=== PATIENT | male | born 1975 | race Caucasian/White ===

== ENCOUNTER 2016-03-04 08:56 | Inpatient (IN) | payer OTHER ==
[~2016-03-04] VITALS: Ht 182.9 cm; Wt 113.7 kg
[~2016-03-04 08:56] MED LIST: FENO48TA4 PO; LISI20TA11 PO; METR500T PO; ONDA-43 PO; PERCOCET PO; PHE12.5R PR
[2016-03-04] MEDS ORDERED: morphine 4 MG/ML VIAL IV STA (09:44)
[2016-03-04] MEDS ORDERED: SOD CHLORIDE 0.9% 1,000 ML IV STA (09:44)
[2016-03-04] MEDS ORDERED: ONDANSETRON 4 MG INJ IV STA (09:44)
[2016-03-04 10:19] LABS: BASOPHILS % 0.3 % (0.0-2.0); EOSINOPHILS # 0.1 10^3/ul (0.0-0.5); EOSINOPHILS % 1.5 % (0.0-7.0); HEMATOCRIT 46.3 % (42.0-52.0); LYMPHOCYTES # 1.8 10^3/ul (0.8-2.9); MEAN CORPUSCULAR HGB CONC 34.5 g/dl (32.0-37.0); MEAN CORPUSCULAR VOLUME 86.8 fl (82.0-101.0); MEAN PLATELET VOLUME 8.9 fl (7.4-10.4); MONOCYTE # 0.7 10^3/ul (0.3-0.9); MONOCYTES % 12.3 % (0.0-11.0); NEUTROPHIL # 3.3 10^3/ul (1.6-7.5); NEUTROPHILS % 55.9 % (39.0-77.0); PLATELET COUNT 166 10^3/UL (140-440); RED BLOOD COUNT 5.34 10^6/ul (4.70-6.10); RED CELL DISTRIBUTION WIDTH 12.6 % (11.5-14.5); UNCORRECTED WBC 5.9 10^3/ul (4.8-10.8); WHITE BLOOD COUNT 5.9 10^3/ul (4.8-10.8)
[2016-03-04 10:20] LABS: ADD UMIC NO; URINE BILIRUBIN (Dip) NEGATIVE (NEGATIVE); URINE BLOOD (Dip) NEGATIVE (NEGATIVE); URINE COLOR LT. YELLOW (YELLOW); URINE GLUCOSE (Dip) NEGATIVE (NEGATIVE); URINE KETONES (Dip) NEGATIVE (NEGATIVE); URINE LEUKOCYTE ESTERASE (Dip) NEGATIVE (NEGATIVE); URINE NITRITE (Dip) NEGATIVE (NEGATIVE); URINE TOTAL PROTEIN (Dip) NEGATIVE (NEGATIVE); URINE UROBILINOGEN (Dip) 0.2 E.U./dL (0.1-1.0)
[2016-03-04 10:26] LABS: ALBUMIN 4.4 g/dl (3.3-4.9); POTASSIUM 4.5 mmol/L (3.5-5.1)
[2016-03-04] MEDS ORDERED: HYDROmorphONE 1 MG/ML SYG IV STA ×2 (10:26→13:01)
[2016-03-04 10:29] LABS: ALBUMIN/GLOBULIN RATIO 1.33; BILIRUBIN,INDIRECT 0.3 mg/dl (0-1.1); BILIRUBIN,TOTAL 0.3 mg/dl (0.2-1.3); CALCIUM 9.6 mg/dl (8.4-10.2); CONDITION 1; CREATININE 1.05 mg/dl (0.61-1.24); TOTAL PROTEIN 7.7 g/dl (6.1-8.1)
[2016-03-04] MEDS ORDERED: IOHEXOL 300MG/ML 150 ML BTL ONE (10:40)
[2016-03-04] MEDS ORDERED: SOD CHLORIDE 0.9% 100 ML ONE (10:40)
--- NOTE | 2016-03-04 11:06 | RADRPT ---
PROCEDURE: CT abdomen and pelvis with contrast. CLINICAL INDICATION: Abdominal pain. Abdominal bloating. TECHNIQUE: CT scan of the abdomen and pelvis with contrast [facility] The patient was scanned following the uncomplicated intravenous administration 100 cc of Omnipa que-300. Coronal and sagittal reformatted images were obtained from the axial source images. One or more of the following does reduction techniques were used: Automated exposure control; adjustment of the mA and/or kV according to patient size; use of the aorta of reconstruction technique. Images were reviewed on a high-resolution PACS workstation. The total exam CTDI equals 23.23 mGy and the to duc exam DLP equals 1612.88 mGy-cm. COMPARISON: CT abdomen pelvis 12/29/2015 FINDINGS: Breathing artifact limits evaluation of the lung bases which are grossly clear.. The heart size is normal, without pericardial thickening or effusion. A coarse calcification in the right posterior liver is stable. There is a 7 mm cyst in the inferior right lobe of the liver. The liver, spleen, and pancreas are otherwise normal.. The gallbladder i s normal. The adrenal glands are symmetric and normal. The kidneys show normal and symmetric enhancement. Th ere is a 7 mm right lower pole renal cyst. No solid renal masses are identified. No renal calculus or obstructive uropathy is seen. The aorta is of normal caliber. There is no retroperitoneal lymph node enlargment. There is no evidence of large or small bowel obstruction. Colonic diverticulosis is again seen. The re is mild thickening of the mid sigmoid colon with mild adjacent inflammatory changes. This is in the same location as prior bout of diverticulitis. There is no evidence of perforation or abscess. No other areas of inflammatory change are noted. A normal appendix is identified. There is no evidence of pelvic sidewall lymph node enlargement. The urinary bladder is decompress ed and collapsed. There is no pelvic free fluid. There is a small left inguinal hernia containing only fat The osseous structures are intact. IMPRESSION: 1. Diverticulosis with mild thickening and subtle adjacent inflammatory change of the mid sigmoid c olon most consistent with diverticulitis. This is in the same location as prior study, and follow-u p with colonoscopy after resolution of symptoms should be considered to exclude neoplasm if clinical ly indicated. No evidence of perforation or abscess formation. 2. Small renal and hepatic cysts. These do not require additional follow-up unless clinically bret cated. 3. Small left inguinal hernia containing only fat. RPTAT: KK .Pablo Amado MD, Date Time Electronically viewed and signed by .Pablo Amado MD, on 03/04/2016 11:05 .B/
[2016-03-04] MEDS ORDERED: HYDROCODONE/APAP (5/325) TAB PO PRN (13:30)
[2016-03-04] MEDS ORDERED: ACETAMINOPHEN 325 MG TAB PO PRN ×2 (13:30)
[2016-03-04] MEDS ORDERED: DOCUSATE SODIUM 100 MG CAP PO PRN (13:30)
[2016-03-04] MEDS ORDERED: morphine 2 MG INJ IV PRN (13:30)
[2016-03-04] MEDS ORDERED: NACL 0.9% 3 ML SYG IV SCH (13:30)
[2016-03-04] MEDS ORDERED: ONDANSETRON 4 MG INJ IV PRN (13:30)
[2016-03-04] MEDS ORDERED: PROMETHAZINE 12.5 MG SUPP PR PRN (14:00)
[2016-03-04] MEDS: CIPROFLOXACIN 400MG/D5W 200 ML IVPB SCH ×2 (14:15→22:46)
[2016-03-04 14:25] VITALS: PULSE 75; TEMP 98.1
--- NOTE | 2016-03-04 14:26 | ERA ---
ER Documentation Chief Complaint Date/Time DATE: 03/04/16 TIME: 14:24 Chief Complaint ABD PAIN WITH DAIRRHEA , NAUSEA X 4 DAYS HPI Patient is a 40-year-old male with previous diverticulitis who presents with abdominal pain. He has 4 days of abdominal pain which in the left lower quadrant. Sharp. He has needed admission for diverticulitis in the past. He has a history of having a diverticulitis which did not get better with outpatient antibiotics. He has had no treatment today for symptoms. ROS All systems reviewed and are negative except as per history of present illness. Medications Home Meds Active Scripts Metronidazole* (Flagyl*) 500 Mg Tablet, 500 MG PO Q8, #1 TAB Prov:IQRA HOFFMAN MD 01/02/16 Ondansetron Hcl* (Zofran*) 4 Mg Tab, 4 MG PO Q6H Y for NAUSEA AND OR VOMITING, # 1 TAB Prov:IQRA HOFFMAN MD 01/02/16 Promethazine HCl (Phenadoz) 12.5 Mg Supp.rect, 12.5 MG [place] Q6H Y for NAUSEA AND/ OR VOMITING, #1 SUPP.RECT Prov:IQRA HOFFMAN MD 01/02/16 Oxycodone Hcl/Acetaminophen (Percocet) 1 Tab Tab, 1 TAB PO QID Y for PAIN, #1 TAB Prov:IQRA HOFFMAN MD 01/02/16 Fenofibrate Nanocrystallized* (Fenofibrate*) 48 Mg Tablet, 48 MG PO DAILY, #30 TAB Prov:IQRA HOFFMAN MD 01/02/16 Reported Medications Lisinopril* (Lisinopril*) 20 Mg Tablet, 20 MG PO DAILY, #30 TAB 12/29/15 Allergies Allergies: Coded Allergies: No Known Allergy (Unverified , 07/22/14) PMhx/Soc History of Surgery: Yes (RIGHT ARM SURGERY, CAVERNOUS HEMANGIOMA LEFT FACE) Anesthesia Reaction: No Hx Neurological Disorder: Yes (HEADACHE SINCE CHILDHOOD) Hx Respiratory Disorders: Yes (BRONCHITIS) Hx Cardiac Disorders: Yes (HTN) Hx Psychiatric Problems: Yes (DEPRESSION WAS ON WELLBUTRIN) Hx Miscellaneous Medical Probl: No (DIVERTICULITIS) Hx Alcohol Use: Yes (OCCASIONAL) Hx Substance Use: No Hx Tobacco Use: Yes (04/2015) Smoking Status: Current every day smoker FmHx Family History: No diabetes Physical Exam Vitals Vital Signs Date Time Temp Pulse Resp B/P Pulse Ox O2 Delivery O2 Flow Rate FiO2 03/04/16 08:58 98.1 88 18 127/75 98 Physical Exam Const: Moderate distress secondary to pain Head: Atraumatic Eyes: Normal Conjunctiva ENT: Normal External Ears, Nose and Mouth. Neck: Full range of motion..~ No meningismus. Resp: Clear to auscultation bilaterally Cardio: Regular rate and rhythm, no murmurs Abd: Soft, left lower quadrant pain without rebound or guarding Skin: No petechiae or rashes Back: No midline or flank tenderness Ext: No cyanosis, or edema Neur: Awake and alert Psych: Normal Mood and Affect Result Diagram: 03/04/1695703/04/16957 Results 24 hrs Laboratory Tests Test 03/04/16 09:48 03/04/16 09:58 Urine Bilirubin NEGATIVE Urine Clarity CLEAR Urine Color LT. YELLOW Urine Glucose NEGATIVE% Urine Hemoglobin NEGATIVE Urine Ketones NEGATIVE Urine Leukocyte Esterase NEGATIVE Urine Nitrite NEGATIVE Urine Specific [place] 1.020 Urine Total Protein NEGATIVE Urine Urobilinogen 0.2 E.U./dL Urine pH 6.0 Alanine Aminotransferase (ALT/SGPT) 49IU/L Albumin 4.4g/dl Albumin/Globulin Ratio 1.33 Alkaline Phosphatase 72IU/L Anion Gap 17 Aspartate Amino Transf (AST/SGOT) 32IU/L Basophils # 0.010^3/ul Basophils % 0.3% Blood Urea Nitrogen 14mg/dl Calcium Level 9.6mg/dl Carbon Dioxide Level 27mmol/L Chloride Level 102mmol/L Creatinine 1.05mg/dl Direct Bilirubin 0.00mg/dl Eosinophils # 0.110^3/ul Eosinophils % 1.5% Globulin 3.30g/dl Glucose Level 100mg/dl Hematocrit 46.3% Hemoglobin 16.0g/dl Indirect Bilirubin 0.3mg/dl Lipase 53U/L Lymphocytes # 1.810^3/ul Lymphocytes % 30.0% Mean Corpuscular Hemoglobin 30.0pg Mean Corpuscular Hemoglobin Concent 34.5g/dl Mean Corpuscular Volume 86.8fl Mean Platelet Volume 8.9fl Monocytes # 0.710^3/ul Monocytes % 12.3% Neutrophils # 3.310^3/ul Neutrophils % 55.9% Nucleated Red Blood Cells # 0.010^3/ul Nucleated Red Blood Cells % 0.0/100WBC Platelet Count 81748^3/UL Potassium Level 4.5mmol/L Red Blood Count 5.3410^6/ul Red Cell Distribution Width 12.6% Sodium Level 141mmol/L Total Bilirubin 0.3mg/dl Total Protein 7.7g/dl White Blood Count 5.910^3/ul Current Medications Medications (Trade) Dose Ordered Sig/Thelma Route PRN Reason Start Time Stop Time Status Last Admin Dose Admin Sodium Chloride (NS) 1,000 ml @ 1,000 mls/hr Q1H STAT IV 03/04/16 09:44 03/04/16 10:43 DC 03/04/16 10:05 Morphine Sulfate (morphine) 4 mg ONCE STAT IV 03/04/16 09:44 03/04/16 09:46 DC 03/04/16 10:06 Ondansetron HCl (Zofran Inj) 4 mg ONCE STAT IV 03/04/16 09:44 03/04/16 09:46 DC 03/04/16 10:06 Hydromorphone HCl (Dilaudid) 1 mg ONCE STAT IV 03/04/16 10:26 03/04/16 10:27 DC 03/04/16 10:56 IV Flush 10 ml 10 ml STK-MED ONCE .ROUTE 03/04/16 10:40 03/04/16 10:41 DC 03/04/16 10:57 Sodium Chloride (NS) 100 ml @ ud STK-MED ONCE .ROUTE 03/04/16 10:40 03/04/16 10:41 DC 03/04/16 10:57 Iohexol (Omnipaque 300mg/ ml) 150 ml STK-MED ONCE .ROUTE 03/04/16 10:40 03/04/16 10:41 DC 03/04/16 10:59 Hydromorphone HCl (Dilaudid) 1 mg ONCE STAT IV 03/04/16 13:01 03/04/16 13:02 DC 03/04/16 13:07 Ondansetron HCl (Zofran Inj) 4 mg BRIDGE ORDER PRN IV NAUSEA AND/OR VOMITING 03/04/16 13:30 03/05/16 13:29 Acetaminophen 650 mg 650 mg ER BRIDGE PRN PO MILD PAIN/FEVER 03/04/16 13:30 03/05/16 13:29 Potassium Chloride/Dextrose/ Sod Cl (D5-1/2ns + KCl 20 Meq) 1,000 ml @ 80 mls/hr [id number] IV 03/04/16 13:27 IV Flush (NS 3 ml) 3 ml PER PROTOCOL IV 03/04/16 13:30 Ondansetron HCl (Zofran Inj) 4 mg Q6H PRN IV NAUSEA AND/OR VOMITING 03/04/16 13:30 Acetaminophen (Tylenol Tab) 650 mg Q6H PRN PO PAIN LEVEL 1-3 OR FEVER 03/04/16 13:30 Acetaminophen/ Hydrocodone Bitart ([place] (5/325)) 1 tab Q6H PRN PO MODERATE PAIN LEVEL 4-6 03/04/16 13:30 Morphine Sulfate (morphine) 2 mg Q4H PRN IV SEVERE PAIN LEVEL 7-10 03/04/16 13:30 Docusate Sodium (Colace) 100 mg Q12H PRN PO CONSTIPATION 03/04/16 13:30 Pantoprazole 40 mg 40 mg DAILY@06 IV 03/05/16 06:00 Ciprofloxacin/ Dextrose (Cipro Ivpb) 200 ml @ 200 mls/hr Q12 IVPB 03/04/16 14:00 03/04/16 14:15 Metronidazole (Flagyl) 500 mg TID PO 03/04/16 21:00 UNV Fenofibrate (Tricor) 48 mg DAILY PO 03/05/16 09:00 UNV Lisinopril (Zestril) 20 mg DAILY PO 03/05/16 09:00 Promethazine HCl (Phenadoz) 12.5 mg Q6H PRN [place] NAUSEA AND/OR VOMITING 03/04/16 14:00 Hydromorphone HCl (Dilaudid) 1 mg Q4H PRN IV PAIN 03/04/16 14:30 03/05/16 10:00 UNV Procedures/MDM CT scan shows acute diverticulitis per radiology. Patient is a 40-year-old male presents with abdominal pain. He has diverticulitis on CT scan. The patient has a normal white blood cell count and normal electrolytes. However given his complicated history with diverticulitis I do believe he will require admission. I spoke with Dr. Hoffman from the panel team who will admit the patient to a medical surgical bed. At this point I doubt appendicitis, cholecystitis, pancreatitis, or bowel obstruction. Departure Diagnosis: Primary Impression: Abdominal pain Qualified Code: R10.32 - Left lower quadrant pain Additional Impression: Diverticulitis Qualified Code: K57.32 - Diverticulitis of large intestine without perforation or abscess without bleeding Condition: LISA Ospina MD Mar 04, 2016 14:26
[2016-03-04] MEDS: ONDANSETRON 4 MG INJ IV PRN ×2 (15:09→21:50)
[2016-03-04] MEDS: D5W-0.45 NACL + KCL 20 MEQ 1,000 ML IV SCH (15:11)
[2016-03-04 15:18] VITALS: Ht 182.9 cm; Wt 113.7 kg
--- NOTE | 2016-03-04 17:01 | HP ---
DATE OF ADMISSION: 03/04/2016 CRITICAL CARE NURSE PRACTITIONER: GI CHIEF COMPLAINT: Abdominal pain. HISTORY OF PRESENT ILLNESS: This is a 40-year-old gentleman with past medical history of diverticul osis, exogenous obesity, essential hypertension and hypertriglyceridemia, GERD, who presented to [facility] secondary to having lower quadrant abdominal pain, 10/10, without any feve r, chills, nausea, vomiting, diarrhea. The pain is sharp, shooting pain. He states that he is able to tolerate liquid diet only. He has been on oral pain medication with no relief and worsening wit h movement. Upon evaluation in the ER, CT abdomen and pelvis was obtained which demonstrated divert iculosis with mild thickening and ____ inflammatory changes in the mid sigmoid colon, most consisten t with diverticulitis. This is ____ the patient has prior to study. No evidence of perforation or abscess formation, small benign hepatic cyst. Small left inguinal hernia containing only fat. The patient was treated with Dilaudid, normal saline, morphine in the course of the Emergency Room. At this time, the patient denies having any chest pain, shortness of breath, nausea, vomiting, diarrhe a. No headache, dizziness, lightheadedness. No change in visual acuity, diplopia, photophobia. No recent travel history. No sick contact, lower quadrant abdominal discomfort, no change in appetit e. No neck pain, no restricted range of motion in upper and lower extremities or his neck. No hair loss, no rash, erythema, or any other discomfort. PAST MEDICAL AND SURGICAL HISTORY: As above per HPI. MEDICATIONS: 1. Fenofibrate. 2. Lisinopril. 3. Flagyl. 4. Zofran. 5. Percocet. 6. Promethazine. ALLERGIES: NO KNOWN DRUG ALLERGIES. FAMILY HISTORY: Noncontributory. SOCIAL HISTORY: Denies any smoking, alcohol, illicit drugs. REVIEW OF SYSTEMS: As above per HPI, otherwise 12 review of systems has been found to be negative. PHYSICAL EXAMINATION: VITAL SIGNS: Temperature 98.1, pulse 88, respiration 18, blood pressure 127/75, oxygen saturation 9 8% in room air. GENERAL APPEARANCE: The patient is lying in bed comfortably without any distress. He is awake, sharee rt, oriented. He is able to answer my questions properly. Body habitus morbidly obese. EYES AND ENT: Conjunctivae and lids are normal. Pupils are normal. Extraocular normal. Hearing g rossly normal. Lips, teeth and gums are normal. Oral mucosa mildly dry. NECK: Supple. Trachea is midline. No lymphadenopathy. RESPIRATORY: Effort is normal. Clear to auscultate bilaterally. CARDIOVASCULAR: Normal S1, S2. Regular rhythm and rate. No murmur, no bruits, no edema. Peripher al pulses, radial pulses palpable. Cap refill is normal. CHEST: Normal expansion of thorax during inspiration. GASTROINTESTINAL: Abdomen is soft, nontender, not distended. Bowel sounds present. No guarding, n o rebound. GENITOURINARY: Deferred. MUSCULOSKELETAL: Upper and lower extremities within normal limits. Full range of motion, strength 5/5 both upper and lower extremities. NEUROLOGIC: Cranial nerves II through XII are grossly intact. MOOD AND AFFECT: Normal. LABORATORY WORK AND IMAGING: WBC 5.9, hemoglobin 16, hematocrit 46.3, platelet 166. Sodium 141, po tassium 4.5, chloride 102, bicarbonate 27, BUN 14, creatinine is 1.05, glucose 100. LFTs all within normal limits. Lipase normal. ASSESSMENT AND PLAN: 1. Diverticulitis. Gastroenterology has been consulted. Patient has been placed on ciprofloxacin and Flagyl, IV fluid, n.p.o. Will follow up Gastroenterology recommendation. 2. Essential hypertension, well controlled on medical management, lisinopril. 3. Hypertriglyceridemia. Continue Fenofibrate. 4. Abdominal pain secondary to #1. Continue pain medication. 5. For deep venous thrombosis prophylaxis, on SCD. 6. For gastrointestinal prophylaxis, on Protonix. 7. We will continue to monitor patient closely. Further recommendations, management and treatment as per clinical course. Total amount of time was spent for evaluation of patient and admission workup 40 minutes. Dictated By: IQRA SANTANA/NTS Conf#: [id number] DID#: [id number]
[2016-03-04] MEDS: HYDROmorphONE 1 MG/ML SYG IV PRN ×2 (17:06→21:08)
--- NOTE | 2016-03-04 17:41 | CONS ---
Date/Time of Note Date/Time of Note DATE: 03/04/16 TIME: 17:41 Assessment/Plan Assessment/Plan Additional Assessment/Plan Diverticulitis * Okay to start clear diet * Continue antibiotic treatment * Recommend surgery consult * Outpatient colonoscopy in 6-8 weeks after discharge Elevated triglycerides Hypertension Obesity Further recommendations depend on clinical course Consultation Date/Type/Reason Admit Date/Time Mar 04, 2016 at 13:05 Type of Consultation: Gastroenterology Reason for Consultation Diverticulosis Hx of Present Illness 40-year-old male with complaints of intense left lower quadrant abdominal pain, nausea, nonbloody bilious vomiting, and diarrhea with intermittent hematochezia for the last 4 days. Patient previously discharged early December with PICC line for antibiotic treatment of diverticulitis. Patient completed treatment but reports increase of symptoms gradually and worsening over the last 4 days. Patient denies fever, chills, bright red blood per rectum, and family history of colon cancer or colon polyps. CT abdomen notes:"Diverticulosis with mild thickening and inflammatory changes in the mid sigmoid colon, most consistent with diverticulitis. No evidence of perforation or abscess formation". Patient reports a total of 5 hospitalizations for same symptoms in the last year. Patient reports being treated at [facility], [facility], [facility], [facility] and [facility]. Patient reports abstaining from seeds, nuts, popcorn without any relief in symptoms. 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 Patient is interested in surgical consult due to recurrent nature of symptoms. Past Medical History Medical History: diverticulitis Past Surgical History Past Surgical Hx: no surgical history Social History Alcohol Use: rarely Smoking Status: Former smoker Exam/Review of Systems Vital Signs Vitals Vital Signs Date Time Temp Pulse Resp B/P Pulse Ox O2 Delivery O2 Flow Rate FiO2 03/04/16 14:25 98.1 75 18 122/63 98 Room Air Exam Constitutional: alert, obese, oriented, well developed Head: atraumatic, normocephalic Eyes: EOMI, nl conjunctiva, nl lids, nl sclera ENMT: mucosa pink and moist, nl external ears & nose, nl lips & teeth, nl nasal mucosa & septum Respiratory: normal air movement Cardiovascular: regular rate and rhythm Gastrointestinal: soft, tender (Left lower quadrant) Neurological: nl mental status Results Result Diagram: 03/04/1658 03/04/16957 Results 24 hrs Laboratory Tests Test 03/04/16 09:48 03/04/16 09:58 Urine Bilirubin NEGATIVE Urine Clarity CLEAR Urine Color LT. YELLOW Urine Glucose NEGATIVE Urine Hemoglobin NEGATIVE Urine Ketones NEGATIVE Urine Leukocyte Esterase NEGATIVE Urine Nitrite NEGATIVE Urine Specific [place] 1.020 Urine Total Protein NEGATIVE Urine Urobilinogen 0.2 E.U./dL Urine pH 6.0 Alanine Aminotransferase (ALT/SGPT) 49 Albumin 4.4 Albumin/Globulin Ratio 1.33 Alkaline Phosphatase 72 Anion Gap 17 H Aspartate Amino Transf (AST/SGOT) 32 Basophils # 0.0 Basophils % 0.3 Blood Urea Nitrogen 14 Calcium Level 9.6 Carbon Dioxide Level 27 Chloride Level 102 Creatinine 1.05 Direct Bilirubin 0.00 Eosinophils # 0.1 Eosinophils % 1.5 Globulin 3.30 H Glucose Level 100 Hematocrit 46.3 Hemoglobin 16.0 Indirect Bilirubin 0.3 Lipase 53 Lymphocytes # 1.8 Lymphocytes % 30.0 Mean Corpuscular Hemoglobin 30.0 Mean Corpuscular Hemoglobin Concent 34.5 Mean Corpuscular Volume 86.8 Mean Platelet Volume 8.9 Monocytes # 0.7 Monocytes % 12.3 H Neutrophils # 3.3 Neutrophils % 55.9 Nucleated Red Blood Cells # 0.0 Nucleated Red Blood Cells % 0.0 Platelet Count 166 Potassium Level 4.5 Red Blood Count 5.34 Red Cell Distribution Width 12.6 Sodium Level 141 Total Bilirubin 0.3 Total Protein 7.7 White Blood Count 5.9 Medications Medications Current Medications Potassium Chloride/Dextrose/ Sod Cl (D5-1/2ns + KCl 20 Meq) 1,000 ml @ 80 mls/ hr [id number] IV Last administered on 03/04/16 15:11; Admin Dose 80 MLS/HR; Start 03/04/16 at 13:27 Ondansetron HCl (Zofran Inj) 4 mg Q6H PRN IV NAUSEA AND/OR VOMITING Last administered on 03/04/16 15:09; Admin Dose 4 MG; Start 03/04/16 at 13:30 Acetaminophen (Tylenol Tab) 650 mg Q6H PRN PO PAIN LEVEL 1-3 OR FEVER; Start at 13:30 Acetaminophen/ Hydrocodone Bitart ([place] (5/325)) 1 tab Q6H PRN PO MODERATE PAIN LEVEL 4-6; Start 03/04/16 at 13:30 Morphine Sulfate (morphine) 2 mg Q4H PRN IV SEVERE PAIN LEVEL 7-10; Start 03/04 at 13:30 Docusate Sodium (Colace) 100 mg Q12H PRN PO CONSTIPATION; Start 03/04/16 at 13: 30 Pantoprazole 40 mg 40 mg DAILY@06 IV ; Start 03/05/16 at 06:00 Ciprofloxacin/ Dextrose (Cipro Ivpb) 200 ml @ 200 mls/hr Q12 IVPB Last administered on 03/04/16t 14:15; Admin Dose 200 MLS/HR; Start 03/04/16 at 14:00 Metronidazole (Flagyl) 500 mg TID PO ; Start 03/04/16 at 21:00 Fenofibrate (Tricor) 48 mg DAILY PO ; Start 03/05/16 at 09:00 Promethazine HCl (Phenadoz) 12.5 mg Q6H PRN [place] NAUSEA AND/OR VOMITING; Start at 14:00 Hydromorphone HCl (Dilaudid) 1 mg Q4H PRN IV PAIN Last administered on 17:06; Admin Dose 1 MG; Start 03/04/16 at 14:30; Stop 03/05/16 at 10:00 Lisinopril (Zestril) 20 mg DAILY PO ; Start 03/04/16 at 21:00 HERMELINDA KAPOOR MD Mar 04, 2016 17:41
[2016-03-04 19:26] VITALS: BP 146/76; RESP 16
--- NOTE | 2016-03-04 19:27 | CONS ---
DATE OF ADMISSION: 03/04/2016 DATE OF CONSULTATION: 03/04/2016 HISTORY OF PRESENT ILLNESS: Mr. Salazar is a 40-year-old male who presented to the emergency room tom[facility] lina[facility] with 4 days of left lower quadrant abdominal pain. Patient has a history of diverticulitis and f elt that these symptoms were similar. He has had approximately 5 episodes in the past. He was rece ntly hospitalized a month ago. A CT showed diverticulitis in a similar spot that he had 1 month ago . He denies fevers or chills. He had some nausea. PAST MEDICAL HISTORY: Significant for exogenous obesity, hypertension, hypertriglyceridemia, and G ERD. MEDICATIONS: 1. Fenofibrate. 2. Lisinopril. 3. Flagyl. 4. Zofran. 5. Percocet 6. Promethazine. ALLERGIES: NO KNOWN DRUG ALLERGIES. PAST SURGICAL HISTORY: Noncontributory. SOCIAL HISTORY: Denies drinking, drug use or smoking. PHYSICAL EXAMINATION: GENERAL: He is a well-developed, well-nourished male in no apparent distress. VITAL SIGNS: He is afebrile. Vital signs stable. CHEST: Clear to auscultation bilaterally. HEART: Regular rhythm. ABDOMEN: Soft, nondistended but some left lower quadrant tenderness. LABORATORY DATA: Reveal white count of 6, hematocrit of 46 and platelets of 166. A CT of the abdom en and pelvis was consistent which showed diverticulosis with mild thickening and subtle adjacent in flammatory change of the mid sigmoid consistent with diverticulitis. ASSESSMENT AND PLAN: Mr. Salazar is a 40-year-old male with acute diverticulitis. 1. I do think the patient should have an elective laparoscopic sigmoid resection in 4 to 6 weeks as the patient is young, has had multiple recurrent attacks. 2. This attack likely can be managed as an outpatient. 3. The patient will see me in followup. Dictated By: JSEE PERRIN/BORA Conf#: [id number] DID#: [id number]
[2016-03-04] MEDS: metroNIDAZOLE 500 MG TAB PO SCH (20:25)
[2016-03-04] MEDS: LISINOPRIL 20 MG TAB PO SCH (20:26)
[2016-03-05] MEDS: D5W-0.45 NACL + KCL 20 MEQ 1,000 ML IV SCH ×3 (01:57→14:27)
[2016-03-05] MEDS ORDERED: PANTOPRAZOLE 40 MG INJ IV SCH (06:00)
[2016-03-05] MEDS: CIPROFLOXACIN 400MG/D5W 200 ML IVPB SCH (08:35)
[2016-03-05] MEDS: metroNIDAZOLE 500 MG TAB PO SCH ×2 (08:36→12:13)
[2016-03-05] MEDS: LISINOPRIL 20 MG TAB PO SCH (08:41)
[2016-03-05] MEDS ORDERED: FENOFIBRATE 48 MG TAB PO SCH (09:00)
[2016-03-05] MEDS ORDERED: LISINOPRIL 20 MG TAB PO SCH (09:00)
[2016-03-05 09:53] LABS: BASOPHILS % 0.3 % (0.0-2.0); EOSINOPHILS # 0.1 10^3/ul (0.0-0.5); EOSINOPHILS % 1.3 % (0.0-7.0); HEMATOCRIT 42.8 % (42.0-52.0); HEMOGLOBIN 14.8 g/dl (14.0-18.0); LYMPHOCYTES # 1.8 10^3/ul (0.8-2.9); LYMPHOCYTES % 42.1 % (15.0-51.0); MEAN CORPUSCULAR HGB CONC 34.6 g/dl (32.0-37.0); MEAN CORPUSCULAR VOLUME 86.8 fl (82.0-101.0); MEAN PLATELET VOLUME 9.1 fl (7.4-10.4); MONOCYTE # 0.5 10^3/ul (0.3-0.9); MONOCYTES % 11.2 % (0.0-11.0); NEUTROPHILS % 45.1 % (39.0-77.0); PLATELET COUNT 159 10^3/UL (140-440); RED BLOOD COUNT 4.94 10^6/ul (4.70-6.10); RED CELL DISTRIBUTION WIDTH 12.8 % (11.5-14.5); UNCORRECTED WBC 4.4 10^3/ul (4.8-10.8); WHITE BLOOD COUNT 4.4 10^3/ul (4.8-10.8)
[2016-03-05 09:57] LABS: CONDITION 1
[2016-03-05 10:01] LABS: POTASSIUM 4.2 mmol/L (3.5-5.1)
[2016-03-05 10:03] LABS: CREATININE 1.1 mg/dl (0.61-1.24)
[2016-03-05 10:04] LABS: MAGNESIUM 2.2 mg/dl (1.7-2.5)
[2016-03-05 10:07] VITALS: BP 126/71; RESP 18
[2016-03-05] MEDS ORDERED: morphine 4 MG/ML VIAL IV PRN (13:30)
--- NOTE | 2016-03-05 14:12 | CONS ---
Date/Time of Note Date/Time of Note DATE: 03/05/16 TIME: 14:05 Assessment/Plan Assessment/Plan Additional Assessment/Plan Diverticulitis * Advance diet as tolerated * Continue antibiotic treatment as outpatient * Follow-up with surgery * Outpatient colonoscopy and capsule endoscopy in 6-8 weeks after discharge Elevated triglycerides Hypertension Obesity Further recommendations depend on clinical course Patient seen in collaboration with Dr. Ambriz Consultation Date/Type/Reason Admit Date/Time Mar 04, 2016 at 13:05 Initial Consult Date Type of Consultation: Gastroenterology 24 HR Interval Summary Free Text/Dictation Tolerating diet Abdominal pain improving Recommend outpatient small bowel evaluation Patient to follow-up with general surgeons 4-6 weeks after discharge Exam/Review of Systems Vital Signs Vitals Vital Signs Date Time Temp Pulse Resp B/P Pulse Ox O2 Delivery O2 Flow Rate FiO2 03/05/16 10:07 97.3 56 18 126/71 97 03/04/16 14:25 Room Air Intake and Output 03/04/16 03/04/16 03/05/16 15:00 23:00 07:00 Intake Total 1800 ml 2360 ml Balance 1800 ml 2360 ml Exam Constitutional: alert, obese, oriented, well developed Head: atraumatic, normocephalic Eyes: EOMI, nl conjunctiva, nl lids, nl sclera ENMT: mucosa pink and moist, nl external ears & nose, nl lips & teeth, nl nasal mucosa & septum Respiratory: normal air movement Cardiovascular: regular rate and rhythm Gastrointestinal: soft, tender (Left lower quadrant) Neurological: nl mental status Results Result Diagram: 03/05/16 0900 03/05/16 0900 Results 24 hrs Laboratory Tests Test 03/05/16 09:00 Anion Gap 18 H Basophils # 0.0 Basophils % 0.3 Blood Urea Nitrogen 11 Calcium Level 9.0 Carbon Dioxide Level 27 Chloride Level 103 Creatinine 1.10 Eosinophils # 0.1 Eosinophils % 1.3 Glucose Level 102 Hematocrit 42.8 Hemoglobin 14.8 Lymphocytes # 1.8 Lymphocytes % 42.1 Magnesium Level 2.2 Mean Corpuscular Hemoglobin 30.0 Mean Corpuscular Hemoglobin Concent 34.6 Mean Corpuscular Volume 86.8 Mean Platelet Volume 9.1 Monocytes # 0.5 Monocytes % 11.2 H Neutrophils # 2.0 Neutrophils % 45.1 Nucleated Red Blood Cells # 0.0 Nucleated Red Blood Cells % 0.0 Platelet Count 159 Potassium Level 4.2 Red Blood Count 4.94 Red Cell Distribution Width 12.8 Sodium Level 144 White Blood Count 4.4 #L Medications Medications Current Medications Potassium Chloride/Dextrose/ Sod Cl (D5-1/2ns + KCl 20 Meq) 1,000 ml @ 80 mls/ hr [id number] IV Last administered on 03/05/16 04:46; Admin Dose 80 MLS/HR; Start 03/04/16 at 13:27 Ondansetron HCl (Zofran Inj) 4 mg Q6H PRN IV NAUSEA AND/OR VOMITING Last administered on 03/04/16 21:50; Admin Dose 4 MG; Start 03/04/16 at 13:30 Acetaminophen (Tylenol Tab) 650 mg Q6H PRN PO PAIN LEVEL 1-3 OR FEVER Last administered on 03/05/16 00:23; Admin Dose 650 MG; Start 03/04/16 at 13:30 Acetaminophen/ Hydrocodone Bitart ([place] (5/325)) 1 tab Q6H PRN PO MODERATE PAIN LEVEL 4-6; Start 03/04/16 at 13:30 Docusate Sodium (Colace) 100 mg Q12H PRN PO CONSTIPATION; Start 03/04/16 at 13: 30 Pantoprazole 40 mg 40 mg DAILY@06 IV Last administered on 03/05/16 06:31; Admin Dose 40 MG; Start 03/05/16 at 06:00 Ciprofloxacin/ Dextrose (Cipro Ivpb) 200 ml @ 200 mls/hr Q12 IVPB Last administered on 03/05/16 08:35; Admin Dose 200 MLS/HR; Start 03/04/16 at 14:00 Metronidazole (Flagyl) 500 mg TID PO Last administered on 03/05/16 12:13; Admin Dose 500 MG; Start 03/04/16 at 21:00 Fenofibrate (Tricor) 48 mg DAILY PO Last administered on 03/05/16 08:36; Admin Dose 48 MG; Start 03/05/16 at 09:00 Promethazine HCl (Phenadoz) 12.5 mg Q6H PRN [place] NAUSEA AND/OR VOMITING; Start at 14:00 Lisinopril (Zestril) 20 mg DAILY PO Last administered on 1/12/17at 08:41; Admin Dose 20 MG; Start 03/04/16 at 21:00 Morphine Sulfate (morphine) 4 mg Q4H PRN IV SEVERE PAIN LEVEL 7-10 Last administered on 03/05/16t 13:48; Admin Dose 4 MG; Start 03/05/16 at 13:30 ANN GARCIA Mar 05, 2016 14:12
--- NOTE | 2016-03-05 15:33 | PDOCDIS ---
Discharge Instructions CONDITION Patient Condition: Good HOME CARE INSTRUCTIONS: Special Diet: full liquid and advance to low fat as tolerated ACTIVITY: Activity Restrictions: No Restrictions FOLLOW UP/APPOINTMENTS Appointments Follow up with Dr. Ambriz as out-pt for capsule endoscopy Follow up with Dr. Moore ( General surgery ) as out-pt ( please provide him Dr. John Moore office phone number ) IQRA HOFFMAN MD Mar 05, 2016 15:33
[2016-03-05] MEDS ORDERED: CIPR500T4 PO (15:37)
--- NOTE | 2016-03-05 21:17 | DS ---
DATE OF ADMISSION: 03/04/2016 DATE OF DISCHARGE: 03/05/2016 CONSULTANTS: 1. GI. 2. General surgery. DIAGNOSES: 1. Diverticulitis. Rn Faculty and general surgery was consulted. The patient was placed o n IV ciprofloxacin and Flagyl, has been transitioned to oral. No surgical intervention as per gener al surgery at this time. The patient will follow up with ski patrol director as outpatient for capsu le endoscopy. 2. Essential hypertension. Well controlled on medical management. 3. Hypercholesterolemia. Continue fenofibrate. 4. Pain medication seeking behavior. Education was provided regarding the risk. PROCEDURES: None. LABORATORY: WBC 4.4, hemoglobin 14.8, platelets 159. Sodium 144, potassium 4.2, chloride 103, bica rbonate 27, BUN 11, creatinine 1.10, glucose 102, calcium 9.2, magnesium 2.2. VITAL SIGNS: Temperature 97.3, pulse 56, respiration 18, blood pressure 126/71, oxygen 97% in room air. HOSPITAL COURSE: This is a 40-year-old gentleman with past medical history of diverticulosis, exoge nous obesity, essential hypertension, hypertriglyceridemia, and GERD who presented to [facility] secondary to having lower abdominal pain, 10/10, without any fever, chills, nausea, v omiting, diarrhea. The patient has sharp, shooting pain. He stated that he is able to tolerate liq uid diet only. Has been on oral pain medication with no relief or worsening with movement. Upon ev aluation in the course of emergency, CT of the abdomen and pelvis was obtained, which demonstrated d iverticulosis with mild thickening and inflammatory changes in the mid sigmoid colon, most consisten t with diverticulitis. The patient was made n.p.o., IV fluid, pain medication. General surgery and gastroenterology were consulted. The patient was placed on IV ciprofloxacin and oral Flagyl as per GI recommendations. The general surgery consultation was obtained. After evaluation with general surgery at this time, no surgical recommendation was recommended at this time, although he stated th at he thinks the patient should have elective laparoscopic sigmoid resection in 4 to 6 weeks, as the patient is young and has multiple recurrent attacks. This attack can be managed as outpatient. Al so, patient, as per general surgery and ski patrol director, has been recommended to follow up with g astroenterology for outpatient capsule endoscopy. At this time, the patient's white count is normal . The patient's pain is controlled. He has been able to tolerate oral intake and, as per gastroent erologist and general surgeon, he is stable to be discharged home on oral antibiotics. Follow gastr oenterology and general surgery as outpatient. I have recommended the patient follow up with Dr. Kathy Moore. The phone number of his office will be provided to him. Unfortunately, the general carlos saumya that evaluated the patient during this course of hospitalization is not in the network [facility]. Therefore, patient should follow up with a surgeon who does accept his insur [facility]. This information has been provided to the patient. CONDITION AT TIME OF DISCHARGE: Stable. Total amount of time that was spent for evaluation and discharge workup, 40 minutes. Dictated By: IQRA SANTANA/NTS Conf#: [id number] DID#: [id number]
== END 2016-03-05 18:00 | disposition home or self-care (01) | DRG 392 ==
LOC: FTE 08:56 → MS2 13:05
PROVIDERS: ADMIT Family Medicine; ATTEND Family Medicine
DX: K57.92 Diverticulitis of intestine, part unspecified, without perforation or abscess without bleeding (principal); I10 Essential (primary) hypertension; E78.00 Pure hypercholesterolemia, unspecified; Z65.8 Other specified problems related to psychosocial circumstances
CPT/HCPCS: 36415; 74177; 80048; 80053; 81003; 83690; 83735; 85025; 96374; 96375; 96376; C9113; J0744; J1170; J2270; J2405; J3480; J7030; Q9967

== ENCOUNTER 2017-02-13 12:24 | Emergency (ER) | payer OTHER ==
[~2017-02-13] VITALS: Wt 122.0 kg
[~2017-02-13 12:24] MED LIST changes: +CIPR500T4 PO; -METR500T PO
[2017-02-13] MEDS ORDERED: ONDANSETRON (ODT) 4 MG TAB ODT STA (13:12)
[2017-02-13] MEDS ORDERED: IBUPROFEN 600 MG TAB PO ONE (13:30)
--- NOTE | 2017-02-13 13:34 | RADRPT ---
PROCEDURE: CT Brain without contrast. CLINICAL INDICATION: Post traumatic headache TECHNIQUE: A CT of the brain was performed on a multidetector CT scanner utilizing axial imaging f rom the skull base through the vertex without IV contrast. Multiplanar reformatted images were made . Images were reviewed on a PACS workstation. The CTDIvol is 45 mGy and the DLP is 712 mGycm. DICOM images are available. One or more of the following dose reduction techniques were utilized: 1.) Automated exposure control 2.) Adjustment of the mA +/- kV according to patient's size 3.) Use of iterative reconstruction technique. COMPARISON: A FINDINGS: There is no intracranial hemorrhage, mass effect, or midline shift. No extra-axial fluid collection is seen. The ventricles and sulci are normal in size and configuration. The density of the brain is normal, and the singh white matter differentiation appears well-preserved. The visualized paranasal sinuses and osseous structures are grossly unremarkable. IMPRESSION: 1. No evidence of acute intracranial pathology. 2. The brain is normal in appearance. .Ulysses Marks MD, Date Time Electronically viewed and signed by .Ulysses Marks MD, MD on 02/13/2017 13:33 .A/
--- NOTE | 2017-02-13 13:48 | RADRPT ---
PROCEDURE: CT cervical spine without contrast CLINICAL INDICATION: Neck pain, trauma TECHNIQUE: CT scan of the cervical spine was performed on a multidetector CT scanner.. No IV cont rast was administered. Coronal and sagittal reformatted images were obtained from the axial source images. Images were reviewed on a high-resolution PACS workstation. CTDI = 22.25 mGy DLP: 52 4.04 mGy-cm DICOM Images are available One or more of the following dose reduction techniques were used: Automated exposure control Adjustment of the mA and / or kV according to patient size Use of iterative reconstruction technique. COMPARISON: Head CT performed same day at. FINDINGS: There is no evidence of acute fracture or subluxation. Vertebral body heights and alignment are grossly preserved. There is mild to moderate multilevel degenerative disc disease including prominent degenerative ante rior enthesopathy throughout, particularly at C3 and C4 along with chronic a fragmented ossification at the anterior longitudinal ligament. There is also multilevel facet arthrosis throughout the spine, moderate in degree, particularly at C 3-C4 and C4-C5 on the right and C7-T1 on the left. There is multilevel foraminal stenosis, moderate at C3-C4 on the right, moderate at C4-C5 on the rig ht, moderate at C5-C6 on the right, and mild to moderate bilaterally at C6-C7. There is no significa nt central canal stenosis present. The prevertebral soft tissues are normal. The lung apices are clear. The paraspinal soft tissues are grossly unremarkable. IMPRESSION: 1. No CT evidence of acute fracture or subluxation of the cervical spine. 2. Moderate multilevel degenerative changes of the cervical spine as above. RPTAT: UU .Geraldo Talbot MD, Date Time Electronically viewed and signed by .Geraldo Talbot MD, MD on 02/13/2017 13:48 .K/
[2017-02-13] MEDS ORDERED: IBUP-1542 PO (14:16)
[2017-02-13] MEDS ORDERED: BACL10TA PO (14:16)
[2017-02-13 14:32] VITALS: BP 157/78; PULSE 71; RESP 18
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
== END 2017-02-13 14:52 | disposition home or self-care (01) ==
LOC: FTE 12:24
DX: M54.5 Low back pain (principal); I10 Essential (primary) hypertension
CPT/HCPCS: 70450; 72125; Z7502; Z7610

== ENCOUNTER 2018-03-05 21:19 | Emergency (ER) | payer OTHER ==
[~2018-03-05] VITALS: Ht 182.9 cm; Wt 128.7 kg
[~2018-03-05 21:19] MED LIST changes: +BACL10TA PO; +IBUP-1542 PO; +LISI-471 PO; -LISI20TA11 PO; -ONDA-43 PO; +ONDA4TAB13 PO; -PHE12.5R PR; +PROM12.553 PR
[2018-03-05 21:23] VITALS: BP 155/77; PULSE 91; RESP 19; Ht 182.9 cm; Wt 128.7 kg
[2018-03-05] MEDS ORDERED: PRED20TA PO (21:35)
[2018-03-05] MEDS ORDERED: FEXO180T61 PO (21:36)
--- NOTE | 2018-03-05 21:40 | ERD ---
ER Documentation Chief Complaint Chief Complaint C/O DONALDO HAND AND DONALDO FOOT RASH/BLISTERS X3 WEEKS HPI This 42-year-old male presents with a itchy rash on the extremities for the last month. Denies any new creams, medications. Event recommend exposed to concrete dust symptoms started. He lost follow-up with dermatology. He states that symptoms are relieved with steroids. He is using what sounds like triamcinolone with minimal relief. Denies, fevers, shortness of breath, additional symptoms. ROS All systems reviewed and are negative except as per history of present illness. Medications Home Meds Active Scripts Fexofenadine Hcl* (Sherry*) 180 Mg Tablet, 180 MG PO DAILY, #30 TAB Prov:ROSELINE MARTINEZ MD 03/05/18 Prednisone* (Prednisone*) 20 Mg Tab, 60 MG PO DAILY for 6 Days, TAB 60 mg by mouth for 3 days then 40 mg by mouth for 3 days. Prov:ROSELINE MARTINEZ MD 03/05/18 Baclofen* (Baclofen*) 10 Mg Tablet, 10 MG PO Q8, #15 TAB Prov:DEBO LAWLER PA-C 02/13/17 Ibuprofen* (Motrin*) 600 Mg Tab, 600 MG PO Q6, #30 TAB Prov:DEBO LAWLER PA-C 02/13/17 Ciprofloxacin Hcl* (Ciprofloxacin Hcl*) 500 Mg Tablet, 500 MG PO BID, #14 TAB Prov:IQRA HOFFMAN MD 03/05/16 Ondansetron Hcl* (Zofran*) 4 Mg Tab, 4 MG PO Q6H PRN for NAUSEA AND OR VOMITING, #1 TAB Prov:IQRA HOFFMAN MD 01/02/16 Promethazine HCl (Phenadoz) 12.5 Mg Supp.rect, 12.5 MG PA Q6H PRN for NAUSEA AND/OR VOMITING, #1 SUPP.RECT Prov:IQRA HOFFMAN MD 01/02/16 Oxycodone Hcl/Acetaminophen (Percocet) 1 Tab Tab, 1 TAB PO QID PRN for PAIN, #1 TAB Prov:IQRA HOFFMAN MD 01/02/16 Fenofibrate Nanocrystallized* (Fenofibrate*) 48 Mg Tablet, 48 MG PO DAILY, #30 TAB Prov:IQRA HOFFMAN MD 01/02/16 Reported Medications Lisinopril* (Lisinopril*) 20 Mg Tablet, 20 MG PO DAILY, #30 TAB 12/29/15 Allergies Allergies: Coded Allergies: piperacillin (Unverified Allergy, Unknown, HIVES, 02/13/17) tazobactam (Unverified Allergy, Unknown, HIVES, 02/13/17) PMhx/Soc History of Surgery: Yes (partial colectomy, appendectomy, diverticulitis) Anesthesia Reaction: No Hx Neurological Disorder: No Hx Respiratory Disorders: No Hx Cardiac Disorders: Yes (htn) Hx Psychiatric Problems: No Hx Miscellaneous Medical Probl: No (DIVERTICULITIS) Hx Alcohol Use: No Hx Substance Use: No Hx Tobacco Use: No Smoking Status: Never smoker FmHx Family History: No diabetes, No coronary disease, No other Physical Exam Vitals Vital Signs Date Temp Pulse Resp B/P (MAP) Pulse Ox O2 O2 Flow FiO2 Time Delivery Rate 03/05/18 97.1 91 19 155/77 97 21:23 (103) Physical Exam Const: No acute distress Head: Atraumatic Eyes: Normal Conjunctiva ENT: Normal External Ears, Nose and Mouth. Neck: Full range of motion. No meningismus. Resp: Clear to auscultation bilaterally Cardio: Regular rate and rhythm, no murmurs Abd: Soft, non tender, non distended. Normal bowel sounds Skin: No petechiae or purpura. Scattered excoriated maculopapular plaques skin lesions with slight scabs from scratching on the dorsum of the bilateral ankles, bilateral elbows, dorsum of the bilateral hands. Back: No midline or flank tenderness Ext: No cyanosis, or edema Neur: Awake and alert Psych: Normal Mood and Affect Results 24 hrs Current Medications Medications Dose Sig/Thelma Start Time Status Last (Trade) Ordered Route PRN Stop Time Admin Dose Reason Admin 125 mg ONCE ONCE 03/05/18 03/05/18 Methylprednis IM 22:00 21:37 olone Sodium 03/05/18 22:01 Succinate (Solu-Medrol) 50 mg ONCE ONCE 03/05/18 03/05/18 Diphenhydrami IM 22:00 21:37 ne HCl 03/05/18 22:01 (Benadryl) Procedures/MDM She presents with signs and symptoms likely atopic dermatitis or eczema. There is no evidence of anaphylaxis, signs of cellulitis, respiratory distress. He was given Solu-Medrol 125 mg IM and Benadryl 50 mg IM. We will treat with a prednisone short taper, Sherry, recommendations for dermatology and insurance compliance analyst and continuation of steroid cream and return precautions for fevers, shortness of breath, new worsening symptoms. The patient was stable with no new complaints during the ER course. Clinically, there is no current evidence to suggest meningitis, sepsis, acute abdomen, pneumonia, stroke, acute coronary syndrome, pulmonary embolism, aortic dissection or any other emergent condition appearing to require further evaluation or hospitalization. Patient counseled regarding my diagnostic impression and care plan. Prior to discharge all questions answered. Pt agrees with treatment plan and understands strict return precautions. Pt is instructed to follow up with primary care provider within 24- 48 hours. Precautionary instructions provided including instructions to return to the ER if not improving or for any worsening or changing symptoms or concerns. Departure Diagnosis: Primary Impression: Rash Condition: Stable Patient Instructions: Atopic Dermatitis (Eczema) Additional Instructions: Recheck with transit mix operator or insurance compliance analyst for further evaluation and treatment. Recheck otherwise for new or worsening symptoms-fevers, shortness of breath, worsening symptoms. ROSELINE MARTINEZ MD Mar 05, 2018 21:39
[2018-03-05] MEDS ORDERED: METHYLPREDNISOLONE 125 MG INJ IM ONE (22:00)
[2018-03-05] MEDS ORDERED: DIPHENHYDRAMINE 50 MG INJ IM ONE (22:00)
== END 2018-03-05 21:51 | disposition home or self-care (01) ==
LOC: FTE 21:19
DX: R21 Rash and other nonspecific skin eruption (principal); I10 Essential (primary) hypertension
CPT/HCPCS: 96372; J1200; J2930; Z7502

== ENCOUNTER 2018-06-04 00:04 | Observation (INO) | payer OTHER ==
[~2018-06-04] VITALS: Ht 182.9 cm; Wt 125.7 kg
[2018-06-04] VITALS (12 sets, daily range): BP systolic 131–143; BP diastolic 69–84; PULSE 54–84; RESP 18; Ht 182.9 cm; Wt 125.7 kg
[~2018-06-04 00:04] MED LIST changes: +FEXO180T61 PO; +PRED20TA PO
[2018-06-04] MEDS ORDERED: ONDANSETRON 4 MG INJ IV PRN (03:00)
[2018-06-04] MEDS ORDERED: ALBUTEROL/IPRATROPIUM (NEB) 3 ML AMP HHN PRN (03:00)
[2018-06-04] MEDS ORDERED: NACL 0.9% 3 ML SYG IV SCH (03:00)
[2018-06-04] MEDS ORDERED: NITROGLYCERIN (SL) 0.4 MG TAB SL PRN (03:00)
[2018-06-04] MEDS ORDERED: HYDROCODONE/APAP (5/325) TAB PO PRN (03:00)
[2018-06-04] MEDS ORDERED: ACETAMINOPHEN 325 MG TAB PO PRN (03:00)
[2018-06-04] MEDS: HYDROCODONE/APAP (5/325) TAB PO PRN (06:13)
--- NOTE | 2018-06-04 06:55 | HP ---
Date/Time of Note Date/Time of Note DATE: 06/04/18 TIME: 06:52 Assessment/Plan VTE Prophylaxis Pharmacological prophylaxis: heparin Lines/Catheters IV Catheter Type (from Nrsg): Saline Lock Urinary Cath still in place: No Assessment/Plan Assessment/Plan 1. Chest pain: Rule out ACS -Telemetry monitoring -Serial troponin -EKG and 2D echo -Aspirin, ACEI. Continue home TriCor. Heart rate at times in the low 60s, no beta-eunice at this time -Check A1c, fasting lipid and TSH -Consider cardiology consult 2. Hypertension: Continue home med. Adjust as needed 3. Obesity with a BMI of almost 38: Weight reduction was advised 4. Headache: Pain management for now. No alarming sign to warrant brain imaging at this time HPI/ROS Admit Date/Time Admit Date/Time Jun 04, 2018 at 01:44 Hx of Present Illness This is a 43-year-old obese male with a history of hypertension, diverticulitis, colon surgery who initially presented to an outside hospital complaining of chest pain. He was transferred to [facility] for insurance reason. The chest pain is located in the mid chest and also slightly left- sided. He reported occasional shortness of breath. Denied nausea/vomiting or diaphoresis. He does however complain of headache. At the outside facility, first troponin is negative, EKG shows T wave flattening otherwise no ST elevation or depression. PMH/Family/Social Past Medical History Medical History: other (See HPI) Medications Current Medications IV Flush (NS 3 ml) 3 ml PER PROTOCOL IV ; Start 06/04/18 at 03:00 Ondansetron HCl (Zofran Inj) 4 mg Q6H PRN IV NAUSEA/VOMITING; Start 06/04/18 at 03:00 Aspirin (Aspirin) 81 mg DAILY PO ; Start 06/04/18 at 09:00 Nitroglycerin (Nitroglycerin (Sl Tab) 0.4 Mg) 1 tab Q5M PRN SL .CHEST PAIN; Start 06/04/18 at 03:00 Acetaminophen (Tylenol Tab) 650 mg Q6H PRN PO .PAIN 1-3 OR TEMP Last administered on 06/04/18at 03:14; Admin Dose 650 MG; Start 06/04/18 at 03:00 Acetaminophen/ Hydrocodone Bitart ([place] (5/325)) 1 tab Q6H PRN PO .PAIN 4-6 Last administered on 06/04/18at 06:13; Admin Dose 1 TAB; Start 06/04/18 at 03:00 Acetaminophen/ Hydrocodone Bitart ([place] (5/325)) 2 tab Q6H PRN PO .PAIN 7-10; Start 06/04/18 at 03:00 Enoxaparin Sodium (Lovenox) 40 mg DAILY SC ; Start 06/04/18 at 09:00 Albuterol/ Ipratropium (Duoneb) 3 ml Q2H RESP THERAPY PRN HHN SHORTNESS OF BREATH; Start 06/04/18 at 03:00 Fenofibrate (Tricor) 48 mg DAILY PO ; Start 06/04/18 at 09:00 Lisinopril (Zestril) 20 mg DAILY PO ; Start 06/04/18 at 09:00 Loratadine (Claritin) 10 mg DAILY PO ; Start 06/04/18 at 09:00 Coded Allergies: peanut (Verified Allergy, Unknown, 06/04/18) piperacillin (Unverified Allergy, Unknown, HIVES, 06/04/18) tazobactam (Unverified Allergy, Unknown, HIVES, 02/13/17) Uncoded Allergies: sellfish (Allergy, Unknown, 06/04/18) Past Surgical History Past Surgical Hx: other (See HPI) Family History Significant Family History: heart disease, cancer, diabetes, hypertension Social History Alcohol Use: none Smoking Status: Never smoker Drug Use: none Exam/Review of Systems Vital Signs Vitals Vital Signs Date Temp Pulse Resp B/P (MAP) Pulse Ox O2 O2 Flow FiO2 Time Delivery Rate 06/04/18 98.0 63 18 134/71 95 Room Air 05:50 (92) Exam Constitutional: other (No acute distress) Head: normocephalic, atraumatic Eyes: EOMI, PERRL Respiratory: clear to auscultation, normal air movement Cardiovascular: regular rate and rhythm, nl pulses Gastrointestinal: soft, non-tender Extremities: normal pulses BRODERICK GONZALEZ MD Jun 04, 2018 06:55
[2018-06-04] MEDS: LORATADINE 10 MG TAB PO SCH (08:54)
[2018-06-04] MEDS: FENOFIBRATE 48 MG TAB PO SCH (08:54)
[2018-06-04] MEDS: ASPIRIN 81 MG TAB PO SCH (08:54)
[2018-06-04] MEDS: LISINOPRIL 20 MG TAB PO SCH (08:54)
[2018-06-04] MEDS: ENOXAPARIN 40 MG/0.4 ML SYG SC SCH (08:59)
[2018-06-04] MEDS ORDERED: NON-FORMULARY/PATIENT OWN MED (Fexofenadine Hcl* (Allegra*) 180 MG) PO SCH (09:00)
--- NOTE | 2018-06-04 11:05 | PN ---
Date/Time of Note Date/Time of Note DATE: 06/04/18 TIME: 11:00 Assessment/Plan VTE Prophylaxis Risk score (from Ns)>0 risk: 2 SCD applied (from Ns): No SCD contraindicated: other Pharmacological prophylaxis: LMWH Lines/Catheters [facility] Saline Lock Urinary Cath still in place: No Assessment/Plan Hospital Course S: Patient had no acute events overnight. Waiting to be seen by cardiology team. O: VS - see below PE: Constitutional: other (No acute distress, answers questions appropriate) Head: normocephalic, atraumatic Eyes: EOMI, PERRL Respiratory: clear to auscultation, normal air movement Cardiovascular: regular rate and rhythm, nl pulses Gastrointestinal: soft, non-tender Extremities: normal pulses Assessment/Plan: 43-year-old male history of obesity, hypertension, eczema and psoriasis who presents with chest pain. 1. Chest pain: Rule out ACS. First troponin negative. Of note patient's father had ID, and mother has history of idiopathic hypertrophic subaortic janusz nosis. A1c 5.3 per -Continue telemetry monitoring, Serial troponin -Follow-up results of EKG and 2D echo -For now continue aspirin, ACEI. Continue home TriCor. Heart rate at times in the low 60s, no beta-eunice at this time -Follow-up results of fasting lipid and TSH -Given positive family history of ID and CAD, will obtain cardiology consult as well. 2. Hypertension: Blood pressure stable now - continue home med. Adjust as needed 3. Obesity with a BMI of almost 38: Weight reduction was advised 4. Headache: - Pain management for now. No alarming sign to warrant brain imaging at this time 5. Eczema and psoriasis. Patient recently seen by outpatient video engineer as well as optomechanical technician for workup of this. Has been on prednisone as an outpatient as well for the last few months off and on. -Continue to monitor for now Result Diagram: 06/04/18 0711 06/04/18 0711 Results 24hrs Laboratory Tests Test 06/04/18 07:11 White Blood Count 7.5 # Red Blood Count 4.64 L Hemoglobin 13.7 L Hematocrit 40.9 L Mean Corpuscular Volume 88.1 Mean Corpuscular Hemoglobin 29.5 Mean Corpuscular Hemoglobin Concent 33.5 Red Cell Distribution Width 13.3 Platelet Count 194 Mean Platelet Volume 11.0 #H Immature Granulocytes % 0.500 H Neutrophils % 60.7 Lymphocytes % 26.9 Monocytes % 10.7 Eosinophils % 0.9 Basophils % 0.3 Nucleated Red Blood Cells % 0.0 Immature Granulocytes # 0.040 H Neutrophils # 4.5 Lymphocytes # 2.0 Monocytes # 0.8 Eosinophils # 0.1 Basophils # 0.0 Nucleated Red Blood Cells # 0.0 Sodium Level 140 Potassium Level 4.0 Chloride Level 105 Carbon Dioxide Level 25 Anion Gap 10 Blood Urea Nitrogen 16 Creatinine 0.81 Est Glomerular Filtrat Rate mL/min > 60 Glucose Level 91 Hemoglobin A1c 5.3 Calcium Level 9.5 Magnesium Level 2.1 Total Bilirubin 0.4 Direct Bilirubin 0.00 Indirect Bilirubin 0.4 Aspartate Amino Transf (AST/SGOT) 20 Alanine Aminotransferase (ALT/SGPT) 28 Alkaline Phosphatase 61 Creatine Kinase 129 Creatine Kinase Index 0.8 Creatinine Kinase MB (Mass) 1.02 Troponin I < 0.012 Total Protein 6.7 Albumin 4.1 Globulin 2.60 Albumin/Globulin Ratio 1.57 Triglycerides Level 333 H Cholesterol Level 191 LDL Cholesterol, Calculated 97 HDL Cholesterol 27 Cholesterol/HDL Ratio 7.0 Thyroid Stimulating Hormone (TSH) 1.320 Exam/Review of Systems Exam Vitals Vital Signs Date Temp Pulse Resp B/P (MAP) Pulse Ox O2 O2 Flow FiO2 Time Delivery Rate 06/04/18 54 08:15 06/04/18 98.3 18 139/79 93 07:21 (99) 06/04/18 Room Air 05:50 Intake and Output 06/03/18 06/03/18 06/04/18 1515:00 23:00 07:00 IntakeIntake Total 200 ml BalanceBalance 200 ml Results Results 24hrs Laboratory Tests Test 06/04/18 07:11 White Blood Count 7.5 # Red Blood Count 4.64 L Hemoglobin 13.7 L Hematocrit 40.9 L Mean Corpuscular Volume 88.1 Mean Corpuscular Hemoglobin 29.5 Mean Corpuscular Hemoglobin Concent 33.5 Red Cell Distribution Width 13.3 Platelet Count 194 Mean Platelet Volume 11.0 #H Immature Granulocytes % 0.500 H Neutrophils % 60.7 Lymphocytes % 26.9 Monocytes % 10.7 Eosinophils % 0.9 Basophils % 0.3 Nucleated Red Blood Cells % 0.0 Immature Granulocytes # 0.040 H Neutrophils # 4.5 Lymphocytes # 2.0 Monocytes # 0.8 Eosinophils # 0.1 Basophils # 0.0 Nucleated Red Blood Cells # 0.0 Sodium Level 140 Potassium Level 4.0 Chloride Level 105 Carbon Dioxide Level 25 Anion Gap 10 Blood Urea Nitrogen 16 Creatinine 0.81 Est Glomerular Filtrat Rate mL/min > 60 Glucose Level 91 Hemoglobin A1c 5.3 Calcium Level 9.5 Magnesium Level 2.1 Total Bilirubin 0.4 Direct Bilirubin 0.00 Indirect Bilirubin 0.4 Aspartate Amino Transf (AST/SGOT) 20 Alanine Aminotransferase (ALT/SGPT) 28 Alkaline Phosphatase 61 Creatine Kinase 129 Creatine Kinase Index 0.8 Creatinine Kinase MB (Mass) 1.02 Troponin I < 0.012 Total Protein 6.7 Albumin 4.1 Globulin 2.60 Albumin/Globulin Ratio 1.57 Triglycerides Level 333 H Cholesterol Level 191 LDL Cholesterol, Calculated 97 HDL Cholesterol 27 Cholesterol/HDL Ratio 7.0 Thyroid Stimulating Hormone (TSH) 1.320 Medications Medication Current Medications IV Flush (NS 3 ml) 3 ml PER PROTOCOL IV ; Start 06/04/18 at 03:00 Ondansetron HCl (Zofran Inj) 4 mg Q6H PRN IV NAUSEA/VOMITING; Start 06/04/18 at 03:00 Aspirin (Aspirin) 81 mg DAILY PO Last administered on 06/04/18at 08:54; Admin Dose 81 MG; Start 06/04/18 at 09:00 Nitroglycerin (Nitroglycerin (Sl Tab) 0.4 Mg) 1 tab Q5M PRN SL .CHEST PAIN; Start 06/04/18 at 03:00 Acetaminophen (Tylenol Tab) 650 mg Q6H PRN PO .PAIN 1-3 OR TEMP Last administered on 06/04/18at 03:14; Admin Dose 650 MG; Start 06/04/18 at 03:00 Acetaminophen/ Hydrocodone Bitart ([place] (5/325)) 1 tab Q6H PRN PO .PAIN 4-6 Last administered on 06/04/18at 06:13; Admin Dose 1 TAB; Start 06/04/18 at 03:00 Acetaminophen/ Hydrocodone Bitart ([place] (5/325)) 2 tab Q6H PRN PO .PAIN 7-10; Start 06/04/18 at 03:00 Enoxaparin Sodium (Lovenox) 40 mg DAILY SC Last administered on 06/04/18 08:59; Admin Dose 40 MG; Start 06/04/18 at 09:00 Albuterol/ Ipratropium (Duoneb) 3 ml Q2H RESP THERAPY PRN HHN SHORTNESS OF BR EATH; Start 06/04/18 at 03:00 Fenofibrate (Tricor) 48 mg DAILY PO Last administered on 06/04/18 08:54; Admin Dose 48 MG; Start 06/04/18 at 09:00 Lisinopril (Zestril) 20 mg DAILY PO Last administered on 06/04/18 08:54; Admin Dose 20 MG; Start 06/04/18 at 09:00 Loratadine (Claritin) 10 mg DAILY PO Last administered on 06/04/18 08:54; Admin Dose 10 MG; Start 06/04/18 at 09:00 BUCK KIRKPATRICK Jun 04, 2018 11:05
--- NOTE | 2018-06-04 13:58 | RADRPT ---
Echocardiogram Report Patient Name: LEV HORTONPatient ID: [id number] : 1975 (43y 3m)Study Date: 06/04/2018 9:04:00 AM Gender: MAccession #: [id number] Tech: MAC Location: Ref.Physician: BRODERICK GONZALEZ Height(Cm): 183 BSA: 2.53Weight(Kg): 125.6 Quality: Technically Difficult StudyAccount #: Procedures: Echocardiographic Report: Transthoracic echocardiogram with complete 2D, M-Mode, and doppler examination, no subcostals. Indications: Chest Pain. Measurements: 2D/M Mode Doppler Measurement Value Normal Range Measurement Value Normal Range LVIDd 2D 4.9 [ 4.2 - 5.8 ] cm AV Peak Aaron 1.5 [ 100.0 - 170.0 ] cm/se c LVIDs 2D 3.1 [ 2.5 - 4.0 ] cm AV Peak PG 9.0 [ 2.0 - 9.0 ] mmHg LVPWd 2D 1.2 [ 0.6 - 1.0 ] cm LVOT Peak Aaron 1.2 [ 70.0 - 110.0 ] cm/sec IVSd 2D 1.4 [ 0.6 - 1.0 ] cm LVOT Peak PG 6.0 [ 2.0 - 6.0 ] mmHg AoR Diam 2D 3.8 [ 2.6 - 3.4 ] cm MV E Peak Aaron 0.7 [ 60.0 - 130.0 ] cm/sec EDV 2D 115.0 [ 62.0 - 150.0 ] ml MV A Peak Aaron 0.3 [ 100.0 - 120.0 ] cm/se c ESV 2D 38.2 [ 21.0 - 61.0 ] ml MV E/A 2.0 [ 0.8 - 1.5 ] ratio EF 2D 66.8 [ 52.0 - 72.0 ] percent MV PHT 104.0 [ 20.0 - 100.0 ] msec LA Dimen 2D 4.0 [ 3.0 - 4.0 ] cm MV Decel Time 356 [ 104 - 258 ] msec MV Decel [place] 2 Lat E` Aaron 0.1 [ 10.0 - 15.0 ] cm/sec Lateral E/E` 6.4 [ 1.0 - 2.0 ] ratio Med E` Aaron 0.1 cm/sec MV E/A 2.0 [ 0.8 - 1.5 ] ratio MVA PHT 2.1 [ 2.0 - 4.0 ] cm2 PV Peak Aaron 1.1 [ 40.0 - 80.0 ] cm/sec PV Peak PG 4.0 mmHg Findings: Left Ventricle: Normal left ventricular systolic function. Normal left ventricular cavity size. Mild concentric left ventricular hypertrophy. Ejection fraction is visually estimated at 60-65 %. Right Ventricle: Normal right ventricular size. Normal right ventricular systolic function. Left Atrium: The left atrium is normal in size. Right Atrium: The right atrium is normal in size. Atrial Septum: Not well visualized. Mitral Valve: Normal appearance of the mitral valve. Mild mitral valve regurgitation. Aortic Valve: No significant aortic stenosis or insufficiency. Normal trileaflet aortic valve structure. Tricuspid Valve: Normal appearance and function of the tricuspid valve with trace physiologic regurgitation. Pulmonic Valve: Normal pulmonic valve appearance. Pericardium: Normal pericardium with no significant pericardial effusion. Aorta: There is mild aortic root dilation. IVC: The IVC is not well visualized. Pulmonary Artery: Normal pulmonary artery size. Conclusions: Normal left ventricular systolic function. Normal left ventricular cavity size. Mild concentric left ventricular hypertrophy. Ejection fraction is visually estimated at 60-65 %. Normal right ventricular size. Normal right ventricular systolic function. Normal appearance of the mitral valve. Mild mitral valve regurgitation. n. No significant aortic stenosis or insufficiency. Normal trileaflet aortic valve structure. Normal appearance and function of the tricuspid valve with trace physiologic regurgitation. Normal pericardium with no significant pericardial effusion. Electronically Signed By: Bandar Page 2018-06-04 13:57:11 PDT
--- NOTE | 2018-06-04 18:00 | CONS ---
DATE OF ADMISSION: 06/04/2018 DATE OF CONSULTATION: 06/04/2018 REASON FOR CONSULTATION: Chest pain. HISTORY OF PRESENT ILLNESS: The patient is a 43-year-old gentleman who complains of acute onset of c hest pain radiating to the neck and the left upper extremity. He also complains of associated shortn ess of breath, palpitation, headache, nausea but no vomiting. Denies blurry vision. 911 was called, and when the paramedics arrived, his systolic blood pressure was in the 190s. He was taken to [facility] ER and was observed for about 6-8 hours and subsequently was transferred to [facility] since his insurance capitated to this hospital. He has a strong family history of myocardi al infarction. His father had myocardial infarction in 30s, and mother has aortic stenosis. SOCIAL HISTORY: He was a smoker in the past. Rarely takes alcohol. No recreational drugs. PAST MEDICAL HISTORY: 1. Hypertension. 2. Obesity. 3. Dermatitis. 4. Psoriasis. 5. Dyslipidemia. ALLERGIES: 1. PEANUT. 2. PIPERACILLIN. 3. SHELLFISH. 4. TAZOBACTAM. CURRENT MEDICATIONS: Include: 1. Aspirin. 2. Lovenox. 3. TriCor. 4. Zestril. 5. Claritin. REVIEW OF SYSTEMS: Unremarkable except that mentioned in the HPI. PHYSICAL EXAMINATION: VITAL SIGNS: Temperature is 98.1, heart rate of 75, blood pressure 142/76 mmHg, breathing at 18, sat urating 97%. GENERAL: The patient awake, alert, oriented, in no apparent distress. NECK: No JVD or carotid bruit. CARDIOVASCULAR: Regular rate and rhythm. No murmur, rub or gallop. CHEST: Clear to auscultation. ABDOMEN: Soft. Bowel sounds are present. There is no organomegaly. EXTREMITIES: No pedal edema. LABORATORY DATA: WBC 7.5, hemoglobin 13.7, hematocrit of 40.9 with platelets of 194. Sodium 140, po tassium 4, chloride 105, CO2 of 25, BUN 16, creatinine 0.81. His hemoglobin A1c 5.3. Troponin x2 is negative. TSH 1.3, hemoglobin A1c 5.3. Total cholesterol 191, LDL 97, HDL 27, triglycerides 333. ASSESSMENT AND PLAN: A 43-year-old gentleman with: 1. Atypical chest pain. 2. Shortness of breath. 3. Hypertensive urgency. 4. Obesity. 5. Dyslipidemia. RECOMMENDATIONS: 1. EKG stat. 2. Echocardiogram. 3. Trend troponin q.8 x3, BNP. 4. Continue lisinopril 5. Continue TriCor. 6. Continue aspirin. 7. Further recommendation after review of the echocardiogram. Dictated By: OKSANA INFANTE MD SR/NTS Conf#: [id number] DID#: [id number] CC: BRODERICK GONZALEZ MD;*End*
[2018-06-05] VITALS (8 sets, daily range): BP systolic 114–157; BP diastolic 56–89; PULSE 54–88; RESP 18–20
[2018-06-05] MEDS: HYDROCODONE/APAP (5/325) TAB PO PRN ×2 (00:48→12:03)
[2018-06-05] MEDS: FENOFIBRATE 48 MG TAB PO SCH (08:42)
[2018-06-05] MEDS: LORATADINE 10 MG TAB PO SCH (08:43)
[2018-06-05] MEDS: ASPIRIN 81 MG TAB PO SCH (08:43)
[2018-06-05] MEDS: LISINOPRIL 20 MG TAB PO SCH (08:43)
[2018-06-05] MEDS: ENOXAPARIN 40 MG/0.4 ML SYG SC SCH (08:47)
--- NOTE | 2018-06-05 11:10 | PN ---
Date/Time of Note Date/Time of Note DATE: 06/05/18 TIME: 11:06 Assessment/Plan VTE Prophylaxis Risk score (from Ns)>0 risk: 2 SCD applied (from [facility]): No SCD contraindicated: other Pharmacological prophylaxis: LMWH Lines/Catheters IV Catheter Type (from [facility]): [place] Lock Urinary Cath still in place: No Assessment/Plan Hospital Course S: Patient had no acute events overnight. Waiting to be seen by cardiology team. O: VS - see below PE: Constitutional: other (No acute distress, answers questions appropriate) Head: normocephalic, atraumatic Eyes: EOMI, PERRL Respiratory: clear to auscultation, normal air movement Cardiovascular: regular rate and rhythm, nl pulses Gastrointestinal: soft, non-tender Extremities: normal pulses 2D echo: June 04, 2018 Conclusions: Normal left ventricular systolic function. Normal left ventricular cavity size. Mild concentric left ventricular hypertrophy. Ejection fraction is visually estimated at 60-65 %. Normal right ventricular size. Normal right ventricular systolic function. Normal appearance of the mitral valve. Mild mitral valve regurgitation. n. No significant aortic stenosis or insufficiency. Normal trileaflet aortic valve structure. Normal appearance and function of the tricuspid valve with trace physiologic regurgitation. Normal pericardium with no significant pericardial effusion. Assessment/Plan: 43-year-old male history of obesity, hypertension, eczema and psoriasis who presents with chest pain. 1. Chest pain: Rule out ACS. First 2 troponins are negative. Of note patient's father had [place], and mother has history of idiopathic hypertrophic subaortic stenosis. A1c 5.3. -Continue telemetry monitoring, follow-up final third troponin test. -For now continue aspirin, ACEI. Continue home TriCor. -Follow-up further cardiology recommendations -particularly regarding a patient will get cardiac stress test are not 2. Hypertension: Blood pressure stable now - continue home med. Adjust as needed 3. Obesity with a BMI of almost 38: Weight reduction was advised 4. Headache: - Pain management for now. No alarming sign to warrant brain imaging at this time 5. Eczema and psoriasis. Patient recently seen by outpatient removable prosthodontist as well as test center manager for workup of this. Has been on prednisone as an outpatient as well for the last few months off and on. -Continue to monitor for now Result Diagram: 4/14/19 0615 4/14/19 0615 Results 24hrs Laboratory Tests Test 06/04/18 11:10 06/05/18 06:15 Creatine Kinase 120 Creatine Kinase Index 0.7 Creatinine Kinase MB (Mass) 0.84 Troponin I < 0.012 White Blood Count 7.6 Red Blood Count 4.90 Hemoglobin 14.5 Hematocrit 43.3 Mean Corpuscular Volume 88.4 Mean Corpuscular Hemoglobin 29.6 Mean Corpuscular Hemoglobin Concent 33.5 Red Cell Distribution Width 13.4 Platelet Count 193 Mean Platelet Volume 10.8 H Immature Granulocytes % 0.500 H Neutrophils % 52.4 Lymphocytes % 35.4 Monocytes % 9.9 Eosinophils % 1.5 Basophils % 0.3 Nucleated Red Blood Cells % 0.0 Immature Granulocytes # 0.040 H Neutrophils # 4.0 Lymphocytes # 2.7 Monocytes # 0.8 Eosinophils # 0.1 Basophils # 0.0 Nucleated Red Blood Cells # 0.0 Sodium Level 141 Potassium Level 4.3 Chloride Level 110 Carbon Dioxide Level 23 Anion Gap 8 Blood Urea Nitrogen 13 Creatinine 0.75 Est Glomerular Filtrat Rate mL/min > 60 Glucose Level 97 Calcium Level 9.2 Phosphorus Level 3.8 Magnesium Level 2.0 Exam/Review of Systems Exam Vitals Vital Signs Date Temp Pulse Resp B/P (MAP) Pulse Ox O2 O2 Flow FiO2 Time Delivery Rate 06/05/18 Room Air 08:14 06/05/18 56 08:09 06/05/18 97.9 18 114/61 96 07:39 (78) 06/04/18 21 21:39 Intake and Output 06/04/18 06/04/18 06/05/18 1515:00 23:00 07:00 IntakeIntake Total 750 ml 600 ml BalanceBalance 750 ml 600 ml Results Results 24hrs Laboratory Tests Test 06/04/18 11:10 06/05/18 06:15 Creatine Kinase 120 Creatine Kinase Index 0.7 Creatinine Kinase MB (Mass) 0.84 Troponin I < 0.012 White Blood Count 7.6 Red Blood Count 4.90 Hemoglobin 14.5 Hematocrit 43.3 Mean Corpuscular Volume 88.4 Mean Corpuscular Hemoglobin 29.6 Mean Corpuscular Hemoglobin Concent 33.5 Red Cell Distribution Width 13.4 Platelet Count 193 Mean Platelet Volume 10.8 H Immature Granulocytes % 0.500 H Neutrophils % 52.4 Lymphocytes % 35.4 Monocytes % 9.9 Eosinophils % 1.5 Basophils % 0.3 Nucleated Red Blood Cells % 0.0 Immature Granulocytes # 0.040 H Neutrophils # 4.0 Lymphocytes # 2.7 Monocytes # 0.8 Eosinophils # 0.1 Basophils # 0.0 Nucleated Red Blood Cells # 0.0 Sodium Level 141 Potassium Level 4.3 Chloride Level 110 Carbon Dioxide Level 23 Anion Gap 8 Blood Urea Nitrogen 13 Creatinine 0.75 Est Glomerular Filtrat Rate mL/min > 60 Glucose Level 97 Calcium Level 9.2 Phosphorus Level 3.8 Magnesium Level 2.0 Medications Medication Current Medications IV Flush (NS 3 ml) 3 ml PER PROTOCOL IV ; Start 06/04/18 at 03:00 Ondansetron HCl (Zofran Inj) 4 mg Q6H PRN IV NAUSEA/VOMITING; Start 06/04/18 at 03:00 Aspirin (Aspirin) 81 mg DAILY PO Last administered on 06/05/18 08:43; Admin Dose 81 MG; Start 06/04/18 at 09:00 Nitroglycerin (Nitroglycerin (Sl Tab) 0.4 Mg) 1 tab Q5M PRN SL .CHEST PAIN; Start 06/04/18 at 03:00 Acetaminophen (Tylenol Tab) 650 mg Q6H PRN PO .PAIN 1-3 OR TEMP Last administered on 06/04/18at 03:14; Admin Dose 650 MG; Start 06/04/18 at 03:00 Acetaminophen/ Hydrocodone Bitart ([place] (5/325)) 1 tab Q6H PRN PO .PAIN 4-6 Last administered on 06/05/18at 00:48; Admin Dose 1 TAB; Start 06/04/18 at 03:00 Acetaminophen/ Hydrocodone Bitart ([place] (5/325)) 2 tab Q6H PRN PO .PAIN 7-10; Start 06/04/18 at 03:00 Enoxaparin Sodium (Lovenox) 40 mg DAILY SC Last administered on 06/05/18 08:47; Admin Dose 40 MG; Start 06/04/18 at 09:00 Albuterol/ Ipratropium (Duoneb) 3 ml Q2H RESP THERAPY PRN HHN SHORTNESS OF BREATH; Start 06/04/18 at 03:00 Fenofibrate (Tricor) 48 mg DAILY PO Last administered on 06/05/18at 08:42; Admin Dose 48 MG; Start 06/04/18 at 09:00 Lisinopril (Zestril) 20 mg DAILY PO Last administered on 06/05/18at 08:43; Admin Dose 20 MG; Start 06/04/18 at 09:00 Loratadine (Claritin) 10 mg DAILY PO Last administered on 06/05/18at 08:43; Admin Dose 10 MG; Start 06/04/18 at 09:00 BUCK KIRKPATRICK Jun 05, 2018 11:10
--- NOTE | 2018-06-05 15:18 | CONS ---
Assessment/Plan Assessment/Plan Assessment/Plan (Daily) 43-year-old gentleman with: 1. Atypical chest pain. 2. Shortness of breath. 3. Hypertensive urgency. 4. Obesity. 5. Dyslipidemia. RECOMMENDATIONS: Started Lopressor Continue lisinopril Continue TriCor. Continue aspirin. Consultation Date/Type/Reason Admit Date/Time Jun 04, 2018 at 01:44 Initial Consult Date Type of Consult Cardiology Date/Time of Note DATE: 06/05/18 TIME: 15:17 Exam/Review of Systems Vital Signs Vitals Vital Signs Date Temp Pulse Resp B/P (MAP) Pulse Ox O2 O2 Flow FiO2 Time Delivery Rate 06/05/18 86 12:08 06/05/18 Room Air 12:03 06/05/18 98.3 18 150/84 97 11:49 (106) 06/04/18 21 21:39 Intake and Output 06/04/18 06/04/18 06/05/18 1414:59 22:59 06:59 IntakeIntake Total 750 ml 600 ml BalanceBalance 750 ml 600 ml Exam Constitutional: alert, oriented Head: normocephalic Neck: supple, non-tender Respiratory: clear to auscultation Cardiovascular: regular rate and rhythm (no mr/g) Gastrointestinal: soft, nl liver, spleen Extremities: normal pulses Labs Result Diagram: 06/05/18 0615 06/05/18 0615 Results 24hrs Laboratory Tests Test 06/05/18 06:15 06/05/18 11:16 White Blood Count 7.6 Red Blood Count 4.90 Hemoglobin 14.5 Hematocrit 43.3 Mean Corpuscular Volume 88.4 Mean Corpuscular Hemoglobin 29.6 Mean Corpuscular Hemoglobin Concent 33.5 Red Cell Distribution Width 13.4 Platelet Count 193 Mean Platelet Volume 10.8 H Immature Granulocytes % 0.500 H Neutrophils % 52.4 Lymphocytes % 35.4 Monocytes % 9.9 Eosinophils % 1.5 Basophils % 0.3 Nucleated Red Blood Cells % 0.0 Immature Granulocytes # 0.040 H Neutrophils # 4.0 Lymphocytes # 2.7 Monocytes # 0.8 Eosinophils # 0.1 Basophils # 0.0 Nucleated Red Blood Cells # 0.0 Sodium Level 141 Potassium Level 4.3 Chloride Level 110 Carbon Dioxide Level 23 Anion Gap 8 Blood Urea Nitrogen 13 Creatinine 0.75 Est Glomerular Filtrat Rate mL/min > 60 Glucose Level 97 Calcium Level 9.2 Phosphorus Level 3.8 Magnesium Level 2.0 Troponin I < 0.012 Medications Medications Current Medications IV Flush (NS 3 ml) 3 ml PER PROTOCOL IV ; Start 06/04/18 at 03:00 Ondansetron HCl (Zofran Inj) 4 mg Q6H PRN IV NAUSEA/VOMITING; Start 06/04/18 at 03:00 Aspirin (Aspirin) 81 mg DAILY PO Last administered on 06/05/18 08:43; Admin Dose 81 MG; Start 06/04/18 at 09:00 Nitroglycerin (Nitroglycerin (Sl Tab) 0.4 Mg) 1 tab Q5M PRN SL .CHEST PAIN; Start 06/04/18 at 03:00 Acetaminophen (Tylenol Tab) 650 mg Q6H PRN PO .PAIN 1-3 OR TEMP Last administered on 06/04/18at 03:14; Admin Dose 650 MG; Start 06/04/18 at 03:00 Acetaminophen/ Hydrocodone Bitart ([place] (5/325)) 1 tab Q6H PRN PO .PAIN 4-6 Last administered on 06/05/18at 12:03; Admin Dose 1 TAB; Start 06/04/18 at 03:00 Acetaminophen/ Hydrocodone Bitart ([place] (5/325)) 2 tab Q6H PRN PO .PAIN 7-10; Start 06/04/18 at 03:00 Enoxaparin Sodium (Lovenox) 40 mg DAILY SC Last administered on 06/05/18at 08:47; Admin Dose 40 MG; Start 06/04/18 at 09:00 Albuterol/ Ipratropium (Duoneb) 3 ml Q2H RESP THERAPY PRN HHN SHORTNESS OF BREATH; Start 06/04/18 at 03:00 Fenofibrate (Tricor) 48 mg DAILY PO Last administered on 06/05/18 08:42; Admin Dose 48 MG; Start 06/04/18 at 09:00 Lisinopril (Zestril) 20 mg DAILY PO Last administered on 06/05/18 08:43; Admin Dose 20 MG; Start 06/04/18 at 09:00 Loratadine (Claritin) 10 mg DAILY PO Last administered on 06/05/18 08:43; Admin Dose 10 MG; Start 06/04/18 at 09:00 OKSANA INFANTE M.D. Jun 05, 2018 15:18
[2018-06-05] MEDS ORDERED: ASPIRIN (EC) 81 MG TAB PO SCH (15:30)
--- NOTE | 2018-06-05 16:26 | PDOCDIS ---
Discharge Instructions CONDITION [id number] Patient Condition: [id number] Stable HOME CARE INSTRUCTIONS: [id number] Diet Instructions: [id number] Low Fat /Cholesterol ACTIVITY: [id number] Activity Restrictions: [id number] Slowly Increase Activity Rest between Activity Avoid heavy lifting FOLLOW UP/APPOINTMENTS Follow-up Plan Please take your medications as prescribed, and see your doctor in the clinic in 1 week. If you experience any chest pain or shortness of breath or any other abnormal symptoms, please call your store protection specialist, call your primary care doctor, go to the ER, or call 911. BUCK KIRKPATRICK Jun 05, 2018 16:26
[2018-06-05] MEDS ORDERED: METO-448 PO (16:31)
[2018-06-05] MEDS ORDERED: ASPI-1044 PO (16:31)
--- NOTE | 2018-06-05 16:35 | DS ---
Date/Time of Note Date/Time of Note DATE: 06/05/18 TIME: 16:33 Discharge Summary Admission/Discharge Info Admit Date/Time Jun 04, 2018 at 01:44 Discharge Date/Time Discharge Diagnosis 1. Chest pain: Rule out ACS. First 2 troponins are negative. Of note jacobo hawk's father had LA, and mother has history of idiopathic hypertrophic subaortic stenosis. A1c 5.3. -Continue telemetry monitoring, follow-up final third troponin test. -For now continue aspirin, ACEI. Continue home TriCor. -Follow-up further cardiology recommendations -particularly regarding a patient will get cardiac stress test are not 2. Hypertension: Blood pressure stable now - continue home med. Adjust as needed 3. Obesity with a BMI of almost 38: Weight reduction was advised 4. Headache: - Pain management for now. No alarming sign to warrant brain imaging at this time 5. Eczema and psoriasis. Patient recently seen by outpatient quality systems technician as well as electronic device monitor for workup of this. Has been on prednisone as an outpatient as well for the last few months off and on. -Continue to monitor for now Patient Condition: Stable Procedures 2D echo: June 04, 2018 Conclusions: Normal left ventricular systolic function. Normal left ventricular cavity size. Mild concentric left ventricular hypertrophy. Ejection fraction is visually estimated at 60-65 %. Normal right ventricular size. Normal right ventricular systolic function. Normal appearance of the mitral valve. Mild mitral valve regurgitation. n. No significant aortic stenosis or insufficiency. Normal trileaflet aortic valve structure. Normal appearance and function of the tricuspid valve with trace physiologic regurgitation. Normal pericardium with no significant pericardial effusion. Hx of Present Illness 43-year-old obese male with a history of hypertension, diverticulitis, colon surgery who initially presented to an outside hospital complaining of chest pain. He was transferred to [facility] for insurance reason. The chest pain is located in the mid chest and also slightly left-sided. He reported occasional shortness of breath. Denied nausea/vomiting or diaphoresis. He does however complain of headache. At the outside facility, first troponin is negative, EKG shows T wave flattening otherwise no ST elevation or depression. Hospital Course Patient was admitted to telemetry floor. He was ruled out for acute coronary syndrome. Echocardiogram performed results listed above. Over the course of his hospital stay his chest pain symptoms improved. He was able to ambulate, tolerated p.o. diet. He was seen by cardiology team as well. He had some blood pressure medicines that were added to help control his blood pressure better. Vital signs are stable on the day of discharge. After getting clearance from the reporting process consultant team he will be discharged home today in improved condition. He has been given strict return precautions in the event he develops any significant chest pain or shortness of breath, dizziness lightheadedness, and is instructed to call his director biomedical engineering, primary care doctor, 911, go to the ER if any of the symptoms occur. See below for full list of discharge medications. Home Meds Active Scripts Fexofenadine Hcl* (Sherry*) 180 Mg Tablet, 180 MG PO DAILY, #30 TAB Prov:ROSELINE MARTINEZ MD 03/05/18 Prednisone* (Prednisone*) 20 Mg Tab, 60 MG PO DAILY for 6 Days, TAB 60 mg by mouth for 3 days then 40 mg by mouth for 3 days. Prov:ROSELINE MARTINEZ MD 03/05/18 Baclofen* (Baclofen*) 10 Mg Tablet, 10 MG PO Q8, #15 TAB Prov:DEBO LAWLER PA-C 02/13/17 Ibuprofen* (Motrin*) 600 Mg Tab, 600 MG PO Q6, #30 TAB Prov:DEBO LAWLER PA-C 02/13/17 Ciprofloxacin Hcl* (Ciprofloxacin Hcl*) 500 Mg Tablet, 500 MG PO BID, #14 TAB Prov:IQRA HOFFMAN MD 03/05/16 Ondansetron Hcl* (Zofran*) 4 Mg Tab, 4 MG PO Q6H PRN for NAUSEA AND OR VOMITING, #1 TAB Prov:IQRA HOFFMAN MD 01/02/16 Promethazine HCl (Phenadoz) 12.5 Mg Supp.rect, 12.5 MG IA Q6H PRN for NAUSEA AND/OR VOMITING, #1 SUPP.RECT Prov:IQRA HOFFMAN MD 01/02/16 Oxycodone Hcl/Acetaminophen (Percocet) 1 Tab Tab, 1 TAB PO QID PRN for PAIN, #1 TAB Prov:IQRA HOFFMAN MD 01/02/16 Fenofibrate Nanocrystallized* (Fenofibrate*) 48 Mg Tablet, 48 MG PO DAILY, #30 TAB Prov:IQRA HOFFMAN MD 01/02/16 Reported Medications Lisinopril* (Lisinopril*) 20 Mg Tablet, 20 MG PO DAILY, #30 TAB 12/29/15 Follow-up Plan Please take your medications as prescribed, and see your doctor in the clinic in 1 week. If you experience any chest pain or shortness of breath or any other abnormal symptoms, please call your director biomedical engineering, call your primary care doctor, go to the ER, or call 911. Primary Care Provider [facility] Time spent on discharge: > 30 minutes Pending Labs Laboratory Tests Test 06/05/18 06:15 06/05/18 11:16 White Blood Count 7.6 10^3/ul (4.8-10.8) Red Blood Count 4.90 10^6/ul (4.70-6.10) Hemoglobin 14.5 g/dl (14.0-18.0) Hematocrit 43.3 % (42.0-52.0) Mean Corpuscular Volume 88.4 fl (82.0-101.0) Mean Corpuscular 29.6 pg (29.0-33.0) Hemoglobin Mean Corpuscular 33.5 g/dl (32.0-37.0) Hemoglobin Concent Red Cell Distribution 13.4 % (11.5-14.5) Width Platelet Count 193 10^3/UL (140-415) Mean Platelet Volume 10.8 fl (7.4-10.4) Immature Granulocytes % 0.500 % (0.001-0.429) Neutrophils % 52.4 % (39.0-77.0) Lymphocytes % 35.4 % (15.0-51.0) Monocytes % 9.9 % (0.0-11.0) Eosinophils % 1.5 % (0.0-7.0) Basophils % 0.3 % (0.0-2.0) Nucleated Red Blood Cells 0.0 /100WBC (0.0-0.0) % Immature Granulocytes # 0.040 10^3/ul (0.0-0.031) Neutrophils # 4.0 10^3/ul (1.6-7.5) Lymphocytes # 2.7 10^3/ul (0.8-2.9) Monocytes # 0.8 10^3/ul (0.3-0.9) Eosinophils # 0.1 10^3/ul (0.0-0.5) Basophils # 0.0 10^3/ul (0.0-0.1) Nucleated Red Blood Cells 0.0 10^3/ul (0.0-0.0) # Sodium Level 141 mmol/L (135-144) Potassium Level 4.3 mmol/L (3.5-5.1) Chloride Level 110 mmol/L (97-110) Carbon Dioxide Level 23 mmol/L (21-31) Anion Gap 8 (5-13) Blood Urea Nitrogen 13 mg/dl (7-20) Creatinine 0.75 mg/dl (0.61-1.24) Est Glomerular Filtrat > 60 mL/min (>60) Rate mL/min Glucose Level 97 mg/dl (70-220) Calcium Level 9.2 mg/dl (8.4-10.2) Phosphorus Level 3.8 mg/dl (2.5-4.9) Magnesium Level 2.0 mg/dl (1.7-2.5) Troponin I < 0.012 ng/ml (0.000-0.120) BUCK KIRKPATRICK Jun 05, 2018 16:35
[2018-06-05] MEDS ORDERED: METOPROLOL 25 MG TAB PO SCH (21:00)
--- NOTE | 2018-06-06 16:17 | RADRPT ---
Vent Rate: 69 bpm RR Interval: 0 msec CO Interval: 168 msec QRS Duration: 96 msec QT Interval: 370 msec QTC Interval: 396 msec P-R-T [place]: 52 - 50 - 47 degrees Normal sinus rhythm Septal infarct , age undetermined Abnormal ECG Electronically Signed By: Francis Younger
== END 2018-06-05 17:16 | disposition home or self-care (01) ==
LOC: 6WM 01:44 → INTOOBSV 01:44 → 6WM 01:58 → TEL 04:27
PROVIDERS: ADMIT Internal Medicine; ATTEND Hospitalist
DX: R07.9 Chest pain, unspecified (principal); I10 Essential (primary) hypertension; E66.9 Obesity, unspecified; Z68.38 Body mass index [BMI] 38.0-38.9, adult; R51 Headache; L30.9 Dermatitis, unspecified; L40.9 Psoriasis, unspecified
CPT/HCPCS: 80048; 80053; 80061; 82550; 82553; 83036; 83735; 84100; 84443; 84484; 85025; 93005; 93306; J1650; Z7500; Z7610; 99217; G0378